=== PATIENT | female | born 1965 | race Caucasian/White ===

== ENCOUNTER → 2017-01-21 | Outpatient (CLI) | payer OTHER | LOC: FIMAGING 07:25 | PROVIDERS: ATTEND Internal Medicine | DX: Z12.31 Encounter for screening mammogram for malignant neoplasm of breast (principal); Z80.3 Family history of malignant neoplasm of breast | CPT/HCPCS: G0202 ==

== ENCOUNTER 2017-08-10 12:21 | Day surgery (SDC) | payer OTHER ==
[2017-08-10] MEDS ORDERED: LR 1,000 ML IV ONE (13:05)
--- NOTE | 2017-08-10 14:06 | PDHPUP ---
History & Physical Update H&P update statement: This history and physical update is based on an assessment of the patient which was completed after admission or registration (within 24 hours), but prior to the surgery/procedure. H&P update: H&P reviewed & patient examined, no change in patient's condition since H&P completed
[2017-08-10] MEDS ORDERED: MIDAZOLAM 2 MG/2 ML VIAL ONE (14:08)
[2017-08-10] MEDS ORDERED: MIDAZOLAM 2 MG/2 ML VIAL IVP ONE (14:10)
--- NOTE | 2017-08-10 14:11 | PDANEPAE ---
ANE Past Medical History - Cardiovascular History Hx Hypertension: No Hx Arrhythmias: No Hx Chest Pain: No Hx Coronary Artery / Peripheral Vascular Disease: No Hx CHF / Valvular Disease: No Hx Palpitations: No Cardiovascular History Comment: mild mitral valve regurge - Pulmonary History Hx COPD: No Hx Asthma/Reactive Airway Disease: No Hx Recent Upper Respiratory Infection: No Hx Oxygen in Use at Home: No Hx Sleep Apnea: No Sleep Apnea Screening Result - Last Documented: Negative - Neurologic History Hx Cerebrovascular Accident: No Hx Seizures: No Hx Dementia: No - Endocrine History Hx Diabetes: No - Renal History Hx Renal Disorders: No - Liver History Hx Hepatic Disorders: No - Neurological & Psychiatric Hx Hx Neurological and Psychiatric Disorders: No - Cancer History Hx Cancer: No - Congenital Disorder History Hx Congenital Disorders: No - GI History Hx Gastrointestinal Disorders: No - Other Health History Other Health History: none - Chronic Pain History Chronic Pain: No - Surgical History Prior Surgeries: none ANE Review of Systems Review of Systems: - Exercise capacity METS (RN): 4 METS ANE Patient History - Allergies Allergies/Adverse Reactions: Cephalosporins Allergy (Intermediate, Verified 08/10/17 13:27) Other-Enter Comments Penicillins Allergy (Intermediate, Verified 08/10/17 13:28) Wheezing shell fish Allergy (Intermediate, Uncoded 07/26/17 10:14) Other-Enter Comments - Home Medications Home Medications: Rizatriptan 07/26/17 [Last Taken 08/07/17] - NPO status NPO Since - Liquids (Date): 08/10/17 NPO Since - Liquids (Time): 11:15 NPO Since - Solids (Date): 08/08/17 NPO Since - Solids (Time): 19:00 - Anes Hx Anes Hx: no prior problems - Smoking Hx Smoking Status: Never smoked - Family Anes Hx Family Hx Anesthesia Complications: none ANE Labs/Vital Signs - Vital Signs Blood Pressure: 129/84 Heart Rate: 88 Respiratory Rate: 16 O2 Sat (%): 95 Height: 172.72 cm Weight: 99.791 kg ANE Physical Exam - Airway Neck exam: FROM Mallampati Score: Class 2 Mouth exam: normal dental/mouth exam - Pulmonary Pulmonary: no respiratory distress, no rales or rhonchi, clear to auscultation - Cardiovascular Cardiovascular: regular rate and rhythym, no murmur, rub, or gallop - ASA Status ASA Status: II ANE Anesthesia Plan Anesthesia Plan: MAC
[2017-08-10] MEDS ORDERED: PROPOFOL/EMULSION 500 MG/50 ML BOTTLE IV ONE (14:13)
[2017-08-10] MEDS ORDERED: NALOXONE HCL 0.4 MG/ML INJ IVP PRN (14:35)
[2017-08-10] MEDS ORDERED: PROMETHAZINE HCL 25 MG/ML INJ IVP PRN (14:35)
[2017-08-10] MEDS ORDERED: MEPERIDINE 25 MG/ML SYR IVP PRN (14:35)
[2017-08-10] MEDS ORDERED: HYDROCODONE/APAP 5/325 TAB PO PRN (14:35)
[2017-08-10] MEDS ORDERED: ACETAMINOPHEN 500 MG TAB PO PRN (14:35)
[2017-08-10] MEDS ORDERED: fentaNYL 100 MCG/2 ML INJ IVP PRN (14:35)
[2017-08-10] MEDS ORDERED: LR 500 ML IV PRN (14:35)
[2017-08-10] MEDS ORDERED: ONDANSETRON 4 MG/2 ML VIAL IVP PRN (14:35)
--- NOTE | 2017-08-10 14:36 | POSTOPPROG ---
Post Op Note Date of Operation: 08/10/17 Surgeon: Addison Keyes Anesthesia: IV Sedation Pre-op Diagnosis: GERD, family h/o colon cancer and polyps Post-op Diagnosis: Same Indication: same Procedure: EGD/bx + cln Findings: irregular z line. Normal CLN Inf/Abcess present in the surg proc area at time of surgery?: No EBL: Minimal
--- NOTE | 2017-08-10 14:41 | GIREPORT ---
[facility] Surgical Services - Endoscopy Department Patient Name: Julieta Garcia Procedure Date: 08/10/2017 2:14 PM Patient Type: Outpatient Attending MD/ ER Physician: Addison Keyes MD Procedure: Upper GI endoscopy Indications: Gastro-esophageal reflux disease Providers: Addison Keyes MD Medicines: Propofol per Anesthesia Complications: No immediate complications. Description of Procedure: After obtaining informed consent, the endoscope was passed under direct vision. Throughout the procedure, the patient's blood pressure, pulse, and oxygen saturations were monitored continuously. The Endoscope was intro duced through the mouth, and advanced to the third part of duodenum. The uppe r GI endoscopy was accomplished with ease. The patient tolerated the procedu re well. Findings: One island of salmon-colored mucosa was present at 40 cm. No other visi ble abnormalities were present. The maximum longitudinal extent of these esophageal mucosal changes was 0.4 cm in length. Biopsies were taken wi th a cold forceps for histology. Verification of patient identification for the specimen was done. AKASH test was taken. No hiatal hernia. Z line at 41 c m. The exam was otherwise without abnormality. Estimated Blood Loss: Estimated blood loss: none. Post Op Diagnosis: - Avery-colored mucosa suggestive of Boles's esophagus. Biopsied. - The examination was otherwise normal. Recommendation: - Await pathology results. - Use Prilosec (omeprazole) 40 mg PO daily for 1 month. Attending Participation: I personally performed the entire procedure. Addison Keyes MD Addison Keyes MD 08/10/2017 2:41:21 PM This report has been signed electronicallyRobert MD Stephy Number of Addenda: 0 Note Initiated On: 08/10/2017 2:14 PM [email or web address]
--- NOTE | 2017-08-10 14:44 | GIREPORT ---
[facility] Surgical Services - Endoscopy Department Patient Name: Julieta Garcia Procedure Date: 08/10/2017 2:24 PM Patient Type: Outpatient Attending MD/ ER Physician: Addison Keyes MD Procedure: Colonoscopy Indications: Colon cancer screening in patient at increased risk: Family history of 1st-degree relative with colon polyps, 2nd degree relative with colon c ancer. Providers: Addison Keyes MD Medicines: Propofol per Anesthesia Complications: No immediate complications. Description of Procedure: After obtaining informed consent, the scope was passed under direct vis ion. Throughout the procedure, the patient's blood pressure, pulse, and oxyg en saturations were monitored continuously. The Colonoscope was introduced through the anus and advanced to the cecum, identified by appendiceal orifice and ileocecal valve. The colonoscopy was performed with ease. T he patient tolerated the procedure well. The quality of the bowel preparat ion was excellent. Findings: The entire examined colon appeared normal on direct and retroflexion vi ews. Estimated Blood Loss: Estimated blood loss: none. Post Op Diagnosis: - The entire examined colon is normal on direct and retroflexion views. - No specimens collected. Recommendation: - Discharge patient to home. - Resume previous diet. - Repeat colonoscopy in 5 years for surveillance. Attending Participation: I personally performed the entire procedure. Addison Keyes MD Addison Keyes MD 08/10/2017 2:44:15 PM This report has been signed electronicallyRobshelley Keyes MD Number of Addenda: 0 Note Initiated On: 08/10/2017 2:24 PM Total Procedure Duration Time 0 hours 5 minutes 43 seconds [email or web address]}
[2017-08-10 15:14] VITALS: PULSE 76; RESP 16; TEMP 98.1
[2017-08-10 15:57] VITALS: BP 127/71; O2SAT 95
--- NOTE | 2017-08-11 08:41 | POSTANESTH ---
Post Anesthetic Evaluation Cardiovascular Status: Normal, Stable, Similar to Pre-Op Cond Respiratory Status: Normal, Stable, Similar to Pre-op Cond. Level of Consciousness/Mental Status: Can Participate in Eval, Mildly Sleepy, Arousable Pain Control: Adequate, Prn Tx Ordered Nausea/Vomiting Control: Adequate, Prn Tx Ordered Complications Possibly Related to Anesthesia: None Noted
== END 2017-08-10 16:05 | disposition home or self-care (01) ==
LOC: FSGY 12:21
PROVIDERS: ATTEND Internal Medicine Gastroenterology
PROC: 0DJD8ZZ Inspection of Lower Intestinal Tract, Via Natural or Artificial Opening Endoscopic (ICD-10-PCS; principal; 2017-08-10 14:15)
PROC: 0DB58ZX Excision of Esophagus, Via Natural or Artificial Opening Endoscopic, Diagnostic (ICD-10-PCS; principal; 2017-08-10 14:15)
DX: Z12.11 Encounter for screening for malignant neoplasm of colon (principal); K22.9 Disease of esophagus, unspecified; K21.9 Gastro-esophageal reflux disease without esophagitis; Z83.71 Family history of colonic polyps; Z80.0 Family history of malignant neoplasm of digestive organs; Z88.0 Allergy status to penicillin
CPT/HCPCS: J2250; J2704

== ENCOUNTER → 2017-10-12 | Outpatient (CLI) | payer OTHER | LOC: FIMAGING 11:25 | PROVIDERS: ATTEND Orthopaedic Surgery | DX: M18.0 Bilateral primary osteoarthritis of first carpometacarpal joints (principal); M77.31 Calcaneal spur, right foot; M77.32 Calcaneal spur, left foot; M21.41 Flat foot [pes planus] (acquired), right foot; M21.42 Flat foot [pes planus] (acquired), left foot; M20.5X1 Other deformities of toe(s) (acquired), right foot ==

== ENCOUNTER 2017-12-16 05:57 | Day surgery (SDC) | payer OTHER ==
[2017-12-16] MEDS ORDERED: CLINDAMYCIN 900 MG/DEXTROSE 50 ML IV ONE ×2 (06:05→06:56)
[2017-12-16] MEDS ORDERED: LIDOCAINE 1% 2 ML INJ ID PRN (06:13)
[2017-12-16] MEDS ORDERED: LR 1,000 ML IV ONE (06:13)
[2017-12-16] MEDS ORDERED: BUPIVACAINE 0.5% 30 ML SDV ONE ×2 (06:54→08:42)
[2017-12-16] MEDS ORDERED: MIDAZOLAM 2 MG/2 ML VIAL IVP ONE (07:02)
--- NOTE | 2017-12-16 07:06 | PDANEPAE ---
ANE History of Present Illness Left achilles tendon repair ANE Past Medical History - Cardiovascular History Hx Hypertension: No Hx Arrhythmias: No Hx Chest Pain: No Hx Coronary Artery / Peripheral Vascular Disease: No Hx CHF / Valvular Disease: No Hx Palpitations: No Cardiovascular History Comment: mild mitral valve regurge - Pulmonary History Hx COPD: No Hx Asthma/Reactive Airway Disease: No Hx Recent Upper Respiratory Infection: No Hx Oxygen in Use at Home: No Hx Sleep Apnea: No Sleep Apnea Screening Result - Last Documented: Negative - Neurologic History Hx Cerebrovascular Accident: No Hx Seizures: No Hx Dementia: No - Endocrine History Hx Diabetes: No Hypothyroid: No Hyperthyroid: No Obesity: no - Renal History Hx Renal Disorders: No - Liver History Hx Hepatic Disorders: No - Neurological & Psychiatric Hx Hx Neurological and Psychiatric Disorders: No - Cancer History Hx Cancer: No - Congenital Disorder History Hx Congenital Disorders: No - GI History GERD: mild Hx Gastrointestinal Disorders: No - Other Health History Other Health History: nasal congestion - Chronic Pain History Chronic Pain: Yes (l foot) - Surgical History Prior Surgeries: colonoscopy ANE Review of Systems Review of Systems: - Exercise capacity METS (RN): 5 METS ANE Patient History - Allergies Allergies/Adverse Reactions: Cephalosporins Allergy (Intermediate, Verified 08/10/17 13:27) Other-Enter Comments Penicillins Allergy (Intermediate, Verified 08/10/17 13:28) Wheezing Iodinated Contrast- Oral and IV Dye Allergy (Verified 12/06/17 11:12) Swelling/neck,face,throat shell fish Allergy (Intermediate, Uncoded 07/26/17 10:14) Other-Enter Comments - Home Medications Home Medications: Acetaminophen [Tylenol 325mg (*)] 325 mg PO DAILY PRN 12/02/17 [Last Taken Unknown] Rizatriptan Benzoate [Maxalt Mailmaster] 10 mg PO DAILY PRN 12/02/17 [Last Taken ] - NPO status NPO Since - Liquids (Date): 12/15/17 NPO Since - Liquids (Time): 19:00 NPO Since - Solids (Date): 12/15/17 NPO Since - Solids (Time): 22:30 - Anes Hx Anes Hx: no prior problems - Smoking Hx Smoking Status: Never smoked Marijuana use: No - Alcohol Use Alcohol Use: Occasionally - Family Anes Hx Family Anes Hx: none Family Hx Anesthesia Complications: none ANE Labs/Vital Signs - Vital Signs Blood Pressure: 157/82 Heart Rate: 64 Respiratory Rate: 16 O2 Sat (%): 97 Height: 170.18 cm Weight: 95.254 kg ANE Physical Exam - Airway Neck exam: FROM Mallampati Score: Class 1 Mouth exam: normal dental/mouth exam - Pulmonary Pulmonary: no respiratory distress, no rales or rhonchi - Cardiovascular Cardiovascular: regular rate and rhythym, no murmur, rub, or gallop ANE Anesthesia Plan Anesthesia Plan: general endotracheal anesthesia Regional Anesthesia: popliteal SNB
[2017-12-16] MEDS ORDERED: PROPOFOL/EMULSION 500 MG/50 ML BOTTLE IV ONE ×2 (07:13)
[2017-12-16] MEDS ORDERED: fentaNYL 250 MCG/5 ML INJ ONE (07:13)
[2017-12-16] MEDS ORDERED: SCOPOLAMINE HYDROBROMIDE 1 MG/3 DAYS PATCH TD SCH (07:15)
[2017-12-16] MEDS ORDERED: MIDAZOLAM 2 MG/2 ML VIAL ONE (07:19)
[2017-12-16] MEDS ORDERED: LIDOCAINE 2% 5 ML SDV ONE (07:51)
[2017-12-16] MEDS ORDERED: DEXAMETHASONE 4 MG/ML VIAL ONE ×2 (07:51)
[2017-12-16] MEDS ORDERED: ROCURONIUM 50 MG/5 ML VIAL ONE (07:51)
[2017-12-16] MEDS ORDERED: KETOROLAC 30 MG/1 ML SDV ONE (08:54)
[2017-12-16] MEDS ORDERED: ONDANSETRON 4 MG/2 ML VIAL ONE (08:54)
--- NOTE | 2017-12-16 08:58 | POSTOPPROG ---
Post Op Note Date of Operation: 12/16/17 Surgeon: Hema Ford Metal Coater Operator: Ariana Anesthesiologist: Juan Daniel Anesthesia: GET(General Endotracheal) Pre-op Diagnosis: L haglunds,achilles tendinitis Post-op Diagnosis: baljit Indication: above Procedure: L haglundsresection, achilles debridement Inf/Abcess present in the surg proc area at time of surgery?: No EBL: Minimal
[2017-12-16] MEDS ORDERED: ACETAMINOPHEN 500 MG TAB PO PRN (09:12)
[2017-12-16] MEDS ORDERED: NALOXONE HCL 0.4 MG/ML INJ IVP PRN (09:12)
[2017-12-16] MEDS ORDERED: fentaNYL 100 MCG/2 ML INJ IVP PRN (09:12)
[2017-12-16] MEDS ORDERED: oxyCODONE IR 5 MG TAB PO PRN (09:12)
[2017-12-16] MEDS ORDERED: HYDROCODONE/APAP 5/325 TAB PO PRN (09:12)
[2017-12-16] MEDS ORDERED: HYDROmorphONE/DILAUDID 2 MG/ML INJ IVP PRN (09:12)
[2017-12-16] MEDS ORDERED: PROMETHAZINE HCL 25 MG/ML INJ IVP PRN (09:12)
[2017-12-16] MEDS ORDERED: ONDANSETRON 4 MG/2 ML VIAL IVP PRN (09:12)
--- NOTE | 2017-12-16 09:15 | POSTANESTH ---
Post Anesthetic Evaluation Cardiovascular Status: Normal, Stable Respiratory Status: Normal, Stable Level of Consciousness/Mental Status: Can Participate in Eval Pain Control: Adequate, Prn Tx Ordered Nausea/Vomiting Control: Adequate, Prn Tx Ordered Complications Possibly Related to Anesthesia: None Noted (no pain)
[2017-12-16] MEDS ORDERED: HYDROmorphone HCL/NS 0.5 MG/ML SYR IVP PRN (09:19)
[2017-12-16 10:40] VITALS: BP 127/72
--- NOTE | 2017-12-16 12:54 | GOP ---
[f rep st] OPERATIVE REPORT DATE OF OPERATION: 12/16/2017 SURGEON: Hema Ford MD HOME HEALTH AIDE: Amilcar Lane SA. ANESTHESIA: General. PREOPERATIVE DIAGNOSIS: Left Achilles tendinitis and left Francisco's deformity and bone spur. POSTOPERATIVE DIAGNOSIS: Left Achilles tendinitis and left Francisco's deformity and bone spur. PROCEDURE PERFORMED: 1. Left Francisco's resection and bone spur resection. 2. Left Achilles tendon debridement with reattachment with SpeedBridge. FINDINGS: SPECIMENS: None. ESTIMATED BLOOD LOSS: 5 mL. INDICATIONS: This is a 52-year-old female with significant Francisco's calcification and pain and Achi lles tendinitis. She failed conservative management including therapy, ice, rest, elevation, time, a nd she elected to proceed. Informed consent obtained. All questions answered. She was marked preop eratively. We discussed the risks of nerve injury, continued pain, tendon detachment, need for more surgery, nee d for transfer, bleeding, DVT. DESCRIPTION OF PROCEDURE: She was taken to the operative suite. A block was administered per Anesth esia. She was given 900 mg of clindamycin IV. Sterilely prepped and draped in normal fashion. Time -out was performed verifying site, side, location. Agreement with the team. All bony prominences we re padded. Tourniquet was inflated after Esmarch. Incision was made midline in the Achilles and dis sected down. Kept 1 layer of the sheath in the skin. Dissected the Achilles free. Made a midline s plit on the Achilles and took this as far distally off the bone as I could. I resected the Francisco's deformity with a chisel as well as a large amount of calcification and osteophyte distally and then debrided the degenerative tendon sharply with a knife. This left me with a good tendon repair and a good bony surface repair too. I thoroughly irrigated this. I placed a guide pin to localize this. Made a square with the marker of the SpeedBridge. Placed the first 2 SpeedBridge anchors. Took this the tendon across these. Drilled the second 2 anchors, tapped these, and then laid the tendon down using the SpeedBridge to hold this in place. I then over sewed one of the limbs to help repair dog-e ar with a free needle. I tested the repair, and it was padron. I closed the remaining foot with 0 Vi cryl and then closed with 2-0 Vicryl, 3-0 Quill, and Dermabond. She was taken to the PACU in stable condition in a splint. IMPLANTS: Arthrex SpeedBridge with 4 anchors. COMPLICATIONS: None. DRAINS: None. CONDITION: Stable. /[id number]/MODL
[2017-12-19] MEDS ORDERED: PATCH REMOVAL 1 EA PATCH TD SCH (07:02)
== END 2017-12-16 10:30 | disposition home or self-care (01) ==
LOC: FSGY 05:57
PROVIDERS: ATTEND Orthopaedic Surgery
PROC: 0LQP0ZZ Repair Left Lower Leg Tendon, Open Approach (ICD-10-PCS; principal; 2017-12-16 07:15)
PROC: 0QBM0ZZ Excision of Left Tarsal, Open Approach (ICD-10-PCS; principal; 2017-12-16 07:15)
DX: M76.62 Achilles tendinitis, left leg (principal); M89.8X7 Other specified disorders of bone, ankle and foot; M72.2 Plantar fascial fibromatosis; G43.909 Migraine, unspecified, not intractable, without status migrainosus; Z87.440 Personal history of urinary (tract) infections
CPT/HCPCS: C1713; J0171; J1100; J1885; J2250; J2405; J2704; J3010

== ENCOUNTER → 2018-01-24 | Outpatient (CLI) | payer OTHER | LOC: FIMAGING 07:26 | PROVIDERS: ATTEND Internal Medicine | DX: Z12.31 Encounter for screening mammogram for malignant neoplasm of breast (principal) ==

== ENCOUNTER → 2018-01-26 | Outpatient (CLI) | payer OTHER | LOC: FIMAGING 17:30 | PROVIDERS: ATTEND Orthopaedic Surgery | DX: R60.0 Localized edema (principal) ==

== ENCOUNTER → 2018-05-22 | Outpatient (CLI) | payer OTHER | LOC: FIMAGING 08:44 | PROVIDERS: ATTEND Orthopaedic Surgery | DX: M25.521 Pain in right elbow (principal) ==

== ENCOUNTER → 2018-08-02 | Outpatient (CLI) | payer OTHER ==
[~2018-08-02] MED LIST: FAMOTIDINE 20 MG/2 ML SDV IV ONE; IOPAMIDOL (ISOVUE-300) 100 ML BTL ONE; methylPREDNISolone SOD SUCC 125 MG/2 ML VIAL ONE
== END | disposition home or self-care (01) ==
LOC: FIMAGING 07:47
PROVIDERS: ATTEND Surgery
DX: R10.31 Right lower quadrant pain (principal); K76.0 Fatty (change of) liver, not elsewhere classified; Z91.041 Radiographic dye allergy status; Z91.013 Allergy to seafood
CPT/HCPCS: J1200; J2930; Q9967

== ENCOUNTER → 2018-08-14 | Outpatient (CLI) | payer OTHER | LOC: FIMAGING 13:21 | PROVIDERS: ATTEND Physician Assistant | DX: J31.0 Chronic rhinitis (principal); J06.9 Acute upper respiratory infection, unspecified; R51 Headache; G31.09 Other frontotemporal neurocognitive disorder ==

== ENCOUNTER → 2018-10-10 | Outpatient (CLI) | payer OTHER | LOC: FIMAGING 07:06 | PROVIDERS: ATTEND Orthopaedic Surgery | DX: M17.11 Unilateral primary osteoarthritis, right knee (principal); C40.21 Malignant neoplasm of long bones of right lower limb ==

== ENCOUNTER → 2018-10-13 | Outpatient (CLI) | payer OTHER | LOC: FIMAGING 11:08 ==

== ENCOUNTER → 2019-01-25 | Outpatient (CLI) | payer OTHER | LOC: FIMAGING 07:01 ==